=== PATIENT | male | born 1940 | race Caucasian/White ===

== ENCOUNTER 2018-07-20 08:08 | Inpatient (IN) | payer MEDICARE ==
[~2018-07-20] VITALS: Ht 157.5 cm; Wt 66.7 kg
--- NOTE | 2018-07-20 08:10 | NUR ---
PT BIBRA TO ED BED 09. PER REPORT, SYNCOPAL EPISODE WHILE SITTING DOWN. 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 STATES HX GOUT. GOWNED AND PLACED ON MONITOR. VSS. AWAITING MD DANIEL.
--- NOTE | 2018-07-20 08:26 | NUR ---
IV LINE STARTED BLOOD DRAWN AND SENT TO LAB.
[2018-07-20] MEDS ORDERED: IV NS 0.9% 1,000 ML BAG IV ONE (08:30)
--- NOTE | 2018-07-20 08:31 | NUR ---
ERMD AT BEDSIDE FOR EVAL.
[2018-07-20 08:36] LABS: BASOPHILS % (AUTO) 0.3 % (0.0-2.0); EOSINOPHILS % (AUTO) 0.6 % (0.0-6.0); HEMATOCRIT 43 % (39-51); HEMOGLOBIN 14.6 g/dL (13.5-17.5); LYMPHOCYTES # (AUTO) 0.7 /CMM (0.8-4.8); LYMPHOCYTES % (AUTO) 7.1 % (20.0-44.0); MEAN CORPUSCULAR HGB CONC 34 g/dl (31.0-36.0); MEAN CORPUSCULAR VOLUME 95 fL (80-96); MONOCYTES # (AUTO) 0.6 /CMM (0.1-1.30); MONOCYTES % (AUTO) 6.3 % (2.0-12.0); NEUTROPHILS # (AUTO) 8.1 /CMM (1.8-8.9); NEUTROPHILS % (AUTO) 85.7 % (43.0-81.0); PLATELET COUNT (AUTO) 146 /CMM (150-450); RED BLOOD CELL COUNT(AUTO) 4.56 MIL/uL (4.5-6.0); WHITE BLOOD COUNT (AUTO) 9.4 K/uL (4.3-11.0)
[2018-07-20 08:41] LABS: CALCIUM, SERUM 8.9 mg/dL (8.5-10.1); CARBON DIOXIDE 25 mmol/L (21-32); CHLORIDE 100 mmol/L (98-107); CREATININE 1.5 mg/dL (0.6-1.3); GLUCOSE 157 mg/dL (74-106); SODIUM SERUM 134 mmol/L (136-145); UREA NITROGEN, BLOOD 20 mg/dL (7-18)
--- NOTE | 2018-07-20 09:07 | NUR ---
PANEL ON-CALL PAGED
--- NOTE | 2018-07-20 09:12 | NUR ---
RADIOLOGY AT BEDSIDE FOR CHEST XRAY.
[2018-07-20] MEDS ORDERED: IBUP-1957 PO (09:51)
[2018-07-20] MEDS ORDERED: COLC0.6T67 PO (09:51)
[2018-07-20] MEDS ORDERED: AMOX500C2 PO (09:51)
--- NOTE | 2018-07-20 10:28 | NUR ---
REPORT GIVEN TO MCKAY LOPEZ. AWAITING TRANSFER TO FLOOR.
--- NOTE | 2018-07-20 10:50 | NUR ---
REPORT RECEIVED FROM NEREIDA LOPEZ FROM ER. AWAITING PATIENT TRANSFER.
[2018-07-20] MEDS ORDERED: HYDROCODONE/APAP 5/325MG 1 EACH TABLET PO PRN (11:00)
[2018-07-20] MEDS ORDERED: ONDANSETRON HCL/PF 4 MG/2 ML VIAL IVP PRN (11:00)
[2018-07-20] MEDS ORDERED: ACETAMINOPHEN 325 MG TABLET PO PRN (11:00)
[2018-07-20] MEDS ORDERED: Z GUARD REMEDY 2 OZ OINT TP PRN (11:00)
[2018-07-20] MEDS ORDERED: MAG HYDROX/AL HYDROX/SIMETH 30 ML UDC PO PRN (11:00)
[2018-07-20] MEDS ORDERED: MAGNESIUM HYDROXIDE 30 ML UDC PO PRN (11:00)
[2018-07-20] MEDS ORDERED: MORPHINE SULFATE INJ 2 MG/ML DISP.SYRIN IV PRN (11:00)
[2018-07-20] MEDS ORDERED: AMOXICILLIN TRIHYDRATE 500 MG CAPSULE PO SCH (11:00)
[2018-07-20] MEDS ORDERED: IBUPROFEN 400 MG TABLET PO PRN (11:30)
--- NOTE | 2018-07-20 11:40 | NUR ---
HARVESTING CONTRACTORPOSTING SPECIALIST NOTE RECEIVED PATIENT FROM ER VIA [facility]. PATIENT IS STABLE, VITAL SIGNS STABLE. ALERT ORIENTED X4. ON ROOM AIR, TOLERATING WELL. IN NO APPARENT DISTRESS OR DISCOMFORT AT THIS TIME. RESPIRATIONS EVEN AND UNLABORED. DENIES PAIN AND SOB. PATIENT ABLE TO TRANSFER FROM [facility] TO BED WITH MINIMAL ASSISTANCE. PATIENT WAS PLACED ON TELE MONITORING SR AT THIS TIME. PHYSICAL ASSESSMENT COMPLETE, HISTORY OBTAINED FROM PATIENT AND FAMILY AT BEDSIDE. SKIN ASSESSMENT COMPLETE, PICTURES TAKEN PLACED IN CHART. PATIENT REFUSED TO REMOVE PANTS STATING HIS SKIN IS CLEAN IN THAT AREA. LEFT AC 20G IVC SL AT THIS TIME. PATENT AND INTACT. PATIENT'S BELONGINGS CHECKED AND NOTED IN THE CHART. WAS MADE COMFORTABLE IN BED. SAFETY MEASURES APPLIED. ORIENTED TO ROOM AND CALL LIGHT. BED IN LOW LOCKED POSITION, SIDE RAILS UP X2, CALL LIGHT WITHIN EASY REACH. RONAN SZYMANSKI NP AWARE OF PATIENT'S ARRIVAL. WILL CARRY OUT ADMISSION ORDER AND CONTINUE TO MONITOR.
[2018-07-20 12:00] VITALS: BP 126/77
[2018-07-20] MEDS: COLCHICINE 0.6 MG TABLET PO PRN (14:14)
[2018-07-20] MEDS: AMOXICILLIN TRIHYDRATE 250 MG CAPSULE PO SCH ×2 (14:15→20:17)
[2018-07-20] MEDS: IV NS 0.9% 1,000 ML IV PRN (14:17)
[2018-07-20 16:00] VITALS: BP 106/63
--- NOTE | 2018-07-20 19:10 | NUR ---
PELT GRADER OPENING NOTES Received patient A/O x4, awake, on semi-Donald's position on bed. Patient on RA, no SOB/respiratory distress noted. Patient denies discomfort at this time. On tele monitor with SR noted. Patient ambulatory with walker. Kept bed low and locked, siderails x2 up, call light within easy reach. Will continue to monitor accordingly.
--- NOTE | 2018-07-20 19:41 | NUR ---
ENVIRONMENTAL PROJECTS ADVISOR CLOSING NOTE PATIENT IN BED, ALERT ORIENTED X4. ON ROOM AIR, TOLERATING WELL. IN NO APPARENT DISTRESS OR DISCOMFORT AT THIS TIME. RESPIRATIONS EVEN AND UNLABORED. DENIES PAIN AND SOB. PATIENT IS ABLE TO COMMUNICATE NEEDS. ON TELE MONITORING SR AT THIS TIME. LEFT AC 20G IVC WITH FLUIDS RUNNING AT 75ML/HR AT THIS TIME, PATENT AND INTACT. PATIENT KEPT CLEAN AND COMFORTABLE. ALL NEEDS ATTENDED, ORDERS RENDERED. SAFETY MEASURES IN PLACE, BED IN LOW LOCKED POSITION, SIDE RAILS UP X2, CALL LIGHT WITHIN EASY REACH. WILL ENDORSE TO PM NURSE FOR NICHOLAS.
[2018-07-20 20:00] VITALS: BP 128/70
[2018-07-20] MEDS: HEPARIN SODIUM, PORCINE 5000 UNITS/1 ML VIAL SQ SCH (20:19)
--- NOTE | 2018-07-20 22:05 | NUR ---
MILL AND COAL TRANSPORT OPERATOR NOTES RN notified by CN that family called that patient is calling to go to bathroom. Call light is off. Checked the patient, asked if he wants to go to bathroom. Patient said he's pressing the red plus sign on bed. Call light at bedside. Reinstructed to patient that only the call light will notify the nurse not from the bed. Assisted patient to go to bathroom with walker. Toothpaste provided. Patient appreciative. Will continue to monitor accordingly.
[2018-07-21] VITALS: BP 115/65
[2018-07-21] MEDS: AMOXICILLIN TRIHYDRATE 250 MG CAPSULE PO SCH ×2 (03:28→11:09)
[2018-07-21 04:43] VITALS: BP 118/73
[2018-07-21] MEDS: IV NS 0.9% 1,000 ML IV PRN (04:47)
--- NOTE | 2018-07-21 06:33 | NUR ---
NEON TUBE BENDER CLOSING NOTES Patient noted asleep at this time. On tele monitor with SR noted. No complaints made within the shift. All due meds given as ordered, no new unsualities noted. All nursing needs attended. Noted ambulatory to toilet with walker. Kept bed low and locked, siderails up, call light within easy reach. Endorsed to the next shift.
[2018-07-21] MEDS ORDERED: IV NS 0.9% 1,000 ML IV PRN (07:10)
[2018-07-21 07:38] LABS: BASOPHILS % (AUTO) 0.3 % (0.0-2.0); EOSINOPHILS % (AUTO) 0.5 % (0.0-6.0); HEMATOCRIT 40 % (39-51); HEMOGLOBIN 13.3 g/dL (13.5-17.5); LYMPHOCYTES # (AUTO) 0.7 /CMM (0.8-4.8); LYMPHOCYTES % (AUTO) 10.4 % (20.0-44.0); MEAN CORPUSCULAR HGB CONC 34 g/dl (31.0-36.0); MEAN CORPUSCULAR VOLUME 95 fL (80-96); MONOCYTES # (AUTO) 0.6 /CMM (0.1-1.30); MONOCYTES % (AUTO) 8.1 % (2.0-12.0); NEUTROPHILS # (AUTO) 5.7 /CMM (1.8-8.9); NEUTROPHILS % (AUTO) 80.7 % (43.0-81.0); PLATELET COUNT (AUTO) 120 /CMM (150-450)
[2018-07-21 08:00] VITALS: BP 118/63
--- NOTE | 2018-07-21 08:00 | NUR ---
Tele/RN - Assessment Patient is alert and oriented, denies dizziness when ambulating to the bathroom, no c/o chest pain, SR on tele monitor, stable on room air. Labs reviewed no critical results. IVF NS increased to 200 ml/hr x [address] Sierra's order. All needs attended. Fall and aspiration precautions maintained. Plan of care discussed with patient and in agreement. Will continue with current medical management.
[2018-07-21 08:01] LABS: CALCIUM, SERUM 8.6 mg/dL (8.5-10.1); CARBON DIOXIDE 24 mmol/L (21-32); CHLORIDE 102 mmol/L (98-107); CREATININE 1.1 mg/dL (0.6-1.3); GLUCOSE 120 mg/dL (74-106); MAGNESIUM 2.2 mg/dL (1.8-2.4); PHOSPHORUS 2.7 mg/dL (2.5-4.9); POTASSIUM 3.8 mmol/L (3.5-5.1); SODIUM SERUM 136 mmol/L (136-145); UREA NITROGEN, BLOOD 17 mg/dL (7-18)
[2018-07-21 08:07] LABS: CHOLESTEROL 165 mg/dL (<200); HDL CHOLESTEROL 52 mg/dL (40-60); LDL 109 mg/dL (0-99); THYROID STIMULATING HORMONE 2.455 uIU/mL (0.358-3.74); TRIGLYCERIDES 103 mg/dL (30-150)
[2018-07-21] MEDS: HEPARIN SODIUM, PORCINE 5000 UNITS/1 ML VIAL SQ SCH (09:13)
[2018-07-21] MEDS: COLCHICINE 0.6 MG TABLET PO PRN (09:13)
[2018-07-21 15:32] VITALS: BP_SYST 122; BP_SYST 129; BP_SYST 140; BP_DIAS 70; BP_DIAS 77; BP_DIAS 79
--- NOTE | 2018-07-21 17:35 | NUR ---
MS/RN - Discharge Patient alert and oriented throughout the shift, discharged home in stable condition, remain afebrile, denies any pain, no c/o dizziness, not in any form of distress, ambulates with walker. Reviewed discharge instructions with patient and katie Jennings both verbalized full understanding of all teachings including medications and follow-up care with Dr. Sierra and PCP within 1 week. Patient has an appointment with [facility] on Wednesday07/25/18 at 13:00. Check hgbA1C in 3 months. Prescription sent to preferred pharmacy. Seek immediate medical attention for worsening symptoms, chest pain, shortness of breath, palpitations, abdominal pain/distention, intractable, nausea and vomiting, diarrhea, hematochezia, melena, weakness, loss of consciousness, neurological deficit, or any other emergent concerns. All belongings with patient and he deny any missing items. Patient refused photos to be taken of skin. Saline lock removed on the left AC with catheter tip intact, no redness, no swelling noted at the site. Discharge paperwork signed and copies were given per protocol. Accompanied to the lobby via wheelchair and transported by private car by katie Jennings.
--- NOTE | 2018-07-23 14:05 | NUR ---
MS RN FOLLOW UP PHONE CALL NOTE SPOKE WITH MR. GERSON FATIMA VIA HOME PHONE NUMBER [phone]. PT AGREEABLE TO PHONE CALL AND REPORTS NO COMPLAINTS WITH HIS STAY, WITH HIS DISCHARGE MEDICATIONS, OR WITH HIS FOLLOW UP APPOINTMENT. HE STATED THAT "EVERYONE WAS WONDERFUL" AND APPRECIATED THE FOLLOW UP PHONE CALL. THANKED THE PT FOR HIS TIME AND PROVIDED CONTACT INFORMATION FOR SENIOR ADMINISTRATIVE ASSISTANT FOR FURTHER QUESTIONS PER PROTOCOL.
== END 2018-07-21 17:35 | disposition home or self-care (01) | DRG 312 ==
LOC: ER 08:13 → TELE 10:45 → MED 07-21 09:41
PROVIDERS: ADMIT Nurse Practitioner Acute Care; ATTEND Nurse Practitioner Acute Care
DX: R55 Syncope and collapse (principal); N17.0 Acute kidney failure with tubular necrosis; E87.1 Hypo-osmolality and hyponatremia; M10.9 Gout, unspecified; D69.6 Thrombocytopenia, unspecified; E86.1 Hypovolemia; Z96.653 Presence of artificial knee joint, bilateral; L40.9 Psoriasis, unspecified; R73.9 Hyperglycemia, unspecified
CPT/HCPCS: 36415; 70450-TC; 71045-TC; 80048-TC; 80061-TC; 83735-TC; 84100-TC; 84443-TC; 84484-TC; 84550-TC; 85025-TC; 87081-TC; 93307-TC; 93880-TC; G0378; J1644; J7030; J7042

== ENCOUNTER 2018-07-25 13:04 | Outpatient (CLI) | payer MEDICARE ==
[~2018-07-25 13:04] MED LIST: AMOX500C2 PO; COLC0.6T67 PO; IBUP-1957 PO
[2018-07-25 13:21] VITALS: BP 141/77
== END 2018-07-25 23:59 | disposition home or self-care (01) ==
LOC: MSC 13:04
PROVIDERS: ATTEND Nurse Practitioner Acute Care
DX: M10.9 Gout, unspecified (principal); R73.9 Hyperglycemia, unspecified; D69.6 Thrombocytopenia, unspecified; Z79.1 Long term (current) use of non-steroidal anti-inflammatories (NSAID); Z96.659 Presence of unspecified artificial knee joint
CPT/HCPCS: 82962; G0463